=== PATIENT | female | born 1955 | race Caucasian/White ===

== ENCOUNTER 2017-01-23 07:57 | Inpatient (IN) | payer MEDICAID ==
[~2017-01-23] VITALS: Ht 162.6 cm; Wt 101.0 kg
[~2017-01-23 07:57] MED LIST: DOXY-216 PO; GABA300C PO; INSUPOW; SERT25TA84 PO; SIMV20TA90 PO; TRAZ100T2 PO
[2017-01-23 08:37] LABS: Basophils # (auto) 0 uL; Basophils % (auto) 0.2 % (0.0-2.0); Eosinophils # (auto) 0.1 uL; Eosinophils % (auto) 0.6 % (0.0-7.0); Hematocrit 46.5 % (36.0-46.0); Lymphocytes # (auto) 2.2 uL; Lymphocytes % (auto) 19.8 % (10.0-50.0); Mean Corpuscular Hemoglobin 30.9 pg (28.0-32.0); Mean Corpuscular Hgb Conc. 34.3 g/dL (32.0-36.0); Monocytes # (auto) 1.1 uL; Monocytes % (auto) 9.7 % (0.0-12.0); Neutrophils # (auto) 7.7 uL; Neutrophils % (auto) 69.7 % (37.0-80.0); Platelet Count (auto) 338 10^3/uL (140-450); Red Cell Distribution Width 12.8 % (11.6-16.0); White Blood Cell 11.1 10^3/uL (4.4-10.8)
[2017-01-23 09:09] LABS: Albumin 4.4 g/dL (3.4-5.0); BUN/Creatinine Ratio 12.3; Bilirubin, Total 0.6 mg/dL (0.2-1.0); Calcium 9.8 mg/dL (8.5-10.1); Potassium 4.4 mmol/L (3.5-5.1); Total Protein 8.7 g/dL (6.4-8.2)
[2017-01-23] MEDS ORDERED: LORazepam 2MG/ML-1ML VIAL IV ONE ×2 (12:45→15:30)
[2017-01-23] MEDS ORDERED: SODIUM CHLORIDE 0.9% 1,000 ML IV ONE (12:45)
[2017-01-23] MEDS ORDERED: InsuLIN REG 1unit/0.01ml Soln (100units/ml) SC ONE (12:45)
[2017-01-23] MEDS: SODIUM CHLORIDE 0.9% 1,000 ML IV SCH ×2 (12:51→19:56)
[2017-01-23] MEDS ORDERED: DEXTROSE (50%) 50ML SYRG IV PRN (13:00)
[2017-01-23] MEDS ORDERED: HYDROcodone-ACET 5/325MG TAB PO PRN (13:00)
[2017-01-23] MEDS ORDERED: PANTOPRAZOLE SODIUM 40 MG/10 ML VIAL IV ONE (13:00)
[2017-01-23] MEDS ORDERED: ACETAMINOPHEN 500 MG TAB PO PRN (13:00)
[2017-01-23] MEDS ORDERED: LORazepam 0.5 MG TAB PO PRN ×2 (13:00→15:30)
[2017-01-23] MEDS ORDERED: MORPHINE SULF INJ 2 MG/ML SYRINGE 1ML IV PRN ×2 (13:00)
[2017-01-23] MEDS ORDERED: cefTRIAXone 1GM/50ML D5W 50 ML IV ONE (13:00)
[2017-01-23] MEDS ORDERED: NITROGLYCERIN 0.4 MG SL TAB SL PRN (13:00)
[2017-01-23] MEDS ORDERED: PROMETHAZINE HCL 25 MG/ML 1ML IV PRN (13:00)
[2017-01-23] MEDS ORDERED: TEMAZEPAM 15 MG CAP PO PRN (13:00)
[2017-01-23] MEDS: ENOXAPARIN SOD 40 MG/0.4 ML SYRINGE SC SCH (13:21)
[2017-01-23] MEDS: GABAPENTIN 300 MG CAP PO SCH ×2 (13:46→22:29)
[2017-01-23] MEDS: GENTAMICIN OPTH sol 0.3% 5ml EACHEYE SCH ×3 (13:46→22:00)
[2017-01-23 14:10] VITALS: BP 142/87
[2017-01-23] MEDS ORDERED: METOPROLOL TARTRATE 50 MG TAB PO ONE (15:30)
[2017-01-23] MEDS: ACCU-CHEK COMFORT CURVE STRIP VI SCH ×2 (16:00→19:56)
[2017-01-23] MEDS: InsuLIN REG 1unit/0.01ml Soln (100units/ml) SC SCH ×2 (16:00→19:56)
[2017-01-23 16:41] VITALS: BP 108/72
[2017-01-23 17:04] LABS: INR 1.02 (0.9-1.15); Prothrombin Time 11.1 sec (9.37-12.3)
[2017-01-23 21:34] VITALS: BP 138/67
[2017-01-23] MEDS ORDERED: SERTRALINE HCL 25 MG PO SCH (22:00)
[2017-01-23] MEDS ORDERED: PATIENTS OWN MEDICATION (Trazodone Hcl 100 MG) PO SCH ×2 (22:00)
[2017-01-23] MEDS ORDERED: SIMVASTATIN 20 MG PO SCH (22:00)
[2017-01-23] MEDS: traZODone HCL 50 MG TAB PO SCH (22:28)
[2017-01-23] MEDS: METOPROLOL TARTRATE 50 MG TAB PO SCH (22:28)
[2017-01-23] MEDS: PRAVASTATIN SODIUM 20 MG TAB PO SCH (22:29)
[2017-01-23] MEDS: SERTRALINE HCL 50 MG TAB PO SCH (22:29)
[2017-01-24] MEDS: GENTAMICIN OPTH sol 0.3% 5ml EACHEYE SCH ×6 (02:00→21:46)
[2017-01-24 04:30] VITALS: BP 119/62
[2017-01-24] MEDS: InsuLIN REG 1unit/0.01ml Soln (100units/ml) SC SCH ×6 (04:32→20:27)
[2017-01-24] MEDS: SODIUM CHLORIDE 0.9% 1,000 ML IV SCH ×3 (04:34→20:51)
[2017-01-24] MEDS: ACCU-CHEK COMFORT CURVE STRIP VI SCH ×6 (04:34→20:27)
[2017-01-24 04:35] LABS: Urine Bilirubin Negative (Negative); Urine Blood Negative /uL (Negative); Urine Color Yellow (Yellow); Urine Glucose 3+ mg/dL (Normal); Urine Ketone TRACE (Negative); Urine Mucus FEW (None Seen); Urine Nitrite Negative (Negative); Urine RBC 1 /hpf (0 - 4); Urine Squamous Epithelial Cell FEW /hpf (<5); Urine Urobilinogen Normal (Negative); Urine pH 5.5 (5.0-8.0)
[2017-01-24] MEDS: GABAPENTIN 300 MG CAP PO SCH ×3 (05:57→21:47)
[2017-01-24 06:24] LABS: Albumin 3.2 g/dL (3.4-5.0); BUN/Creatinine Ratio 17.9; Bilirubin, Total 0.7 mg/dL (0.2-1.0); Calcium 8.3 mg/dL (8.5-10.1); Total Protein 7.3 g/dL (6.4-8.2)
[2017-01-24 07:48] LABS: Basophils # (auto) 0 uL; Basophils % (auto) 0.5 % (0.0-2.0); Eosinophils # (auto) 0.1 uL; Eosinophils % (auto) 1.9 % (0.0-7.0); Hematocrit 43.7 % (36.0-46.0); Hemoglobin 14.9 g/dL (12.2-16.2); Lymphocytes # (auto) 2.9 uL; Lymphocytes % (auto) 37.1 % (10.0-50.0); Mean Corpuscular Hemoglobin 31.6 pg (28.0-32.0); Mean Corpuscular Volume 92.8 fL (80.0-100.0); Mean Platelet Volume 8.8 fL (7.4-10.4); Monocytes # (auto) 0.7 uL; Monocytes % (auto) 9.2 % (0.0-12.0); Neutrophils % (auto) 51.3 % (37.0-80.0); Platelet Count (auto) 255 10^3/uL (140-450); Red Cell Distribution Width 13.4 % (11.6-16.0); White Blood Cell 7.7 10^3/uL (4.4-10.8)
[2017-01-24 08:00] VITALS: BP 133/68
[2017-01-24 09:00] VITALS: BP 130/71
[2017-01-24] MEDS: cefTRIAXone 1GM/50ML D5W 50 ML IV SCH (09:00)
[2017-01-24] MEDS: ENOXAPARIN SOD 40 MG/0.4 ML SYRINGE SC SCH (11:55)
[2017-01-24] MEDS: PANTOPRAZOLE SODIUM 40 MG/10 ML VIAL IV SCH ×2 (11:55→14:49)
[2017-01-24] MEDS: METOPROLOL TARTRATE 50 MG TAB PO SCH ×2 (11:56→21:47)
[2017-01-24 13:00] VITALS: BP 117/68
[2017-01-24] MEDS ORDERED: InsuLIN REG 1unit/0.01ml Soln (100units/ml) ONE (16:11)
[2017-01-24 17:00] VITALS: BP 126/71
[2017-01-24] MEDS: traZODone HCL 50 MG TAB PO SCH (21:46)
[2017-01-24] MEDS: SERTRALINE HCL 50 MG TAB PO SCH (21:47)
[2017-01-24] MEDS: PRAVASTATIN SODIUM 20 MG TAB PO SCH (21:47)
[2017-01-24 22:00] VITALS: BP 110/67
[2017-01-25] MEDS: GENTAMICIN OPTH sol 0.3% 5ml EACHEYE SCH ×3 (02:20→12:23)
[2017-01-25] MEDS: ACCU-CHEK COMFORT CURVE STRIP VI SCH ×4 (03:56→12:23)
[2017-01-25] MEDS: InsuLIN REG 1unit/0.01ml Soln (100units/ml) SC SCH ×4 (03:56→12:23)
[2017-01-25] MEDS: SODIUM CHLORIDE 0.9% 1,000 ML IV SCH ×2 (04:16→12:24)
[2017-01-25 05:00] VITALS: BP 98/60
[2017-01-25] MEDS: GABAPENTIN 300 MG CAP PO SCH (05:32)
[2017-01-25 06:04] LABS: Potassium 3.9 mmol/L (3.5-5.1)
[2017-01-25 06:07] LABS: BUN/Creatinine Ratio 16.5; Calcium 8.2 mg/dL (8.5-10.1)
[2017-01-25] MEDS: PANTOPRAZOLE SODIUM 40 MG/10 ML VIAL IV SCH (08:27)
[2017-01-25] MEDS: cefTRIAXone 1GM/50ML D5W 50 ML IV SCH (08:27)
[2017-01-25 09:00] VITALS: BP 129/71
[2017-01-25 10:58] VITALS: BP 122/68
[2017-01-25] MEDS: ENOXAPARIN SOD 40 MG/0.4 ML SYRINGE SC SCH (12:24)
[2017-01-25] MEDS: METOPROLOL TARTRATE 50 MG TAB PO SCH (12:24)
== END 2017-01-25 14:07 | disposition home or self-care (01) | DRG 460 ==
LOC: EDBD 07:57 → ER 08:02 → TELE 08:03 → TELE-EAST 14:17
PROVIDERS: ADMIT Internal Medicine; ATTEND Internal Medicine
DX: N17.9 Acute kidney failure, unspecified (principal); I11.0 Hypertensive heart disease with heart failure; I15.9 Secondary hypertension, unspecified; I50.9 Heart failure, unspecified; I16.0 Hypertensive urgency; N39.0 Urinary tract infection, site not specified; E11.65 Type 2 diabetes mellitus with hyperglycemia; R10.9 Unspecified abdominal pain; H10.9 Unspecified conjunctivitis; J45.909 Unspecified asthma, uncomplicated; E86.0 Dehydration; F17.210 Nicotine dependence, cigarettes, uncomplicated; Z82.49 Family history of ischemic heart disease and other diseases of the circulatory system; Z86.14 Personal history of Methicillin resistant Staphylococcus aureus infection; Z82.5 Family history of asthma and other chronic lower respiratory diseases; Z83.3 Family history of diabetes mellitus; Z88.5 Allergy status to narcotic agent; Z84.89 Family history of other specified conditions
CPT/HCPCS: 36415; 70450; 71010; 74176; 80048; 80053; 80061; 80307; 81001; 82150; 82962; 83036; 83690; 85025; 85610; 85652; 85730; 86141; 87081; 87086; 96365; 96372; 96375; C9113; J0696; J1815